=== PATIENT | male | born 1955 | race American Indian/Alaskan Native ===

== ENCOUNTER 2020-07-07 06:45 | Day surgery (SDC) | payer OTHER ==
[2020-07-07] MEDS ORDERED: ASPIRIN EC 325 MG TAB PO ONE (07:16)
[2020-07-07 07:36] LABS: Basophils # (Auto) 0.1 K/mm3 (0.0-0.1); Basophils % (Auto) 0.7 % (0.0-1.8); Eosinophils # (Auto) 0.3 K/mm3 (0.0-0.4); Eosinophils % (Auto) 3.5 % (0.0-4.3); Hemoglobin 14.4 gm/dl (11.8-15.2); Lymphocytes # (Auto) 3.4 K/mm3 (1.2-5.4); Lymphocytes % (Auto) 40.4 % (13.4-35.0); Mean Corpuscular HGB Conc 33 % (32-34); Mean Corpuscular Volume 89 fl (84-94); Monocytes # (Auto) 0.7 K/mm3 (0.0-0.8); Monocytes % (Auto) 8.7 % (0.0-7.3); Platelet Count 174 K/mm3 (140-440); Red Blood Count 4.85 M/mm3 (3.65-5.03); Red Cell Distribution Width 14.7 % (13.2-15.2)
[2020-07-07] MEDS: SODIUM CHLORIDE 0.9% 500 ML 500 ML IV SCH ×2 (07:40→08:53)
[2020-07-07 07:46] LABS: INR 1.01 (0.87-1.13)
[2020-07-07 07:47] LABS: BUN/Creatinine Ratio 13; Blood Urea Nitrogen 16 mg/dL (9-20); Hemolysis Index 6; Partial Thromboplastin Time 26.3 Sec. (24.2-36.6)
[2020-07-07] MEDS ORDERED: HEPARIN 10,000 UNITS/10 ML VIAL ONE (08:09)
[2020-07-07] MEDS ORDERED: HEPARIN/NS 5000 UNIT/500ML 1,000 ML IR ONE (08:09)
[2020-07-07] MEDS ORDERED: NITROGLYCERIN SYRINGE 0 ML ONE (08:10)
[2020-07-07] MEDS ORDERED: VERAPAMIL 5 MG/2 ML INJ ONE (08:10)
[2020-07-07] MEDS ORDERED: diphenhydrAMINE 50 MG/ML VIAL IV SCH (08:30)
[2020-07-07] MEDS ORDERED: FAMOTIDINE 20 MG/2 ML INJ IV SCH (08:30)
[2020-07-07] MEDS ORDERED: methylPREDNISolone Sod Succinate 125 MG/2 ML INJ IV NR (08:30)
[2020-07-07] MEDS: MIDAZOLAM 2 MG/2 ML INJ ONE ×2 (08:52→09:01)
[2020-07-07] MEDS: fentaNYL 100 MCG/2 ML INJ ONE ×2 (08:52→09:01)
[2020-07-07] MEDS: LIDOCAINE (2%) 20 MG/1 ML VIAL 20 ML MDV INFILTRATI ONE ×2 (08:53→09:02)
--- NOTE | 2020-07-07 10:04 | Discharge Summary ---
Short Stay Discharge Plan Activity: advance as tolerated Weight Bearing Status: Partial Weight Bearing Diet: low fat, low cholesterol, low salt Wound: keep clean and dry Special Instructions: no heavy lifting (3 days) Follow up with: RORO WILBURN MD [Primary Care Provider] - 7 Days ALONSO COY MD [Staff Physician] - 7 Days
[2020-07-07] MEDS ORDERED: SODIUM CHLORIDE 0.9% 1000 ML 1,000 ML IV SCH (10:15)
--- NOTE | 2020-07-07 10:16 | Cardiac Catherization Report ---
CARDIAC CATHETERIZATION REPORT REASON FOR PROCEDURE: The patient is a 64-year-old man with a history of hypertension, sarcoidosis, and sleep apnea. He presented as an outpatient with exertional dyspnea and fatigue. Despite a negative thallium stress test and a normal coronary angiography 3 years ago, he continues to have exertional dyspnea and fatigue, prompting a recommendation for right and left heart catheterization. PROCEDURES: 1. Right heart catheterization. 2. Selective left and right coronary angiography. 3. Left ventricular angiography. 4. Sedation time, start 900, end 922. I was present for the entire procedure and supervised the moderate sedation protocol. DESCRIPTION OF PROCEDURE: The patient was prepped and draped in a sterile fashion after informed consent. In recognition of a SEAFOOD allergy, he was premedicated with Solu-Medrol and Benadryl. The right femoral artery and vein were then entered after local anesthetic, and a 6-[place] sheath was placed in the artery and an 8-[place] sheath in the vein. [place] catheter was then advanced to the pulmonary artery position. Cardiac output was measured using the thermodilution method. A pigtail catheter was then advanced into the left ventricle, and simultaneous left and right heart filling pressures were then measured. The [place]-Alexandru catheter was then withdrawn, and right heart pressures measured on pullback. Left ventricular angiography was then performed, following which the pigtail catheter was withdrawn across the aortic valve and transaortic pressures were measured. Finally, selective left and right coronary angiography was performed using a #4 left Bhavna and a #4 right Bhavna. The catheters were then removed, sheath was removed, hemostasis over the arterial site using an Angio-Seal device, and manual compression over the venous site. The patient was returned to the postprocedure unit in stable condition. There were no complications. FINDINGS: HEMODYNAMICS: Mean right atrial pressure was 8. Right ventricular pressure was 40/12. Pulmonary artery pressure was 40/25. The mean pulmonary artery wedge pressure was 15. Left ventricular end-diastolic pressure was 15. Ascending aortic pressure was 134/83. There was no significant pressure gradient on pullback across the aortic valve. Cardiac output was 6.7 liters per minute. CORONARY ANGIOGRAPHY: The left main coronary artery was angiographically normal. The left anterior descending artery contained minimal irregularities in its proximal to mid segment, otherwise this vessel and its obtuse marginal branches were also angiographically normal. The circumflex artery was a large and dominant system, similarly angiographically normal. The right coronary artery was small, nondominant, and angiographically free of significant disease. Left ventricular systolic function was within normal limits, ejection fraction 50-55%. CONCLUSION: 1. Normal right heart filling pressures, borderline increase in left heart filling pressures, mild pulmonary hypertension. 2. Angiographically normal coronary arteries in the left circumflex dominant system. 3. Well preserved left ventricular systolic function, ejection fraction 50-55%. RECOMMENDATION: Risk factor modification, the patient is recommended to pursue pulmonary evaluation if his symptoms of shortness of breath persist. JOB# [id number] JOSEP/NTS
[2020-07-07] MEDS ORDERED: HYDROcodone/ACETAMINOPHEN 5-325 MG TAB PO PRN (10:30)
[2020-07-07] MEDS ORDERED: traMADol 50 MG TAB PO PRN (10:30)
[2020-07-07 14:26] VITALS: BP 137/87
== END 2020-07-07 15:20 | disposition home or self-care (01) ==
LOC: CATHLABREC 06:45
PROVIDERS: ATTEND Internal Medicine Cardiovascular Disease
DX: R06.09 Other forms of dyspnea (principal); R53.83 Other fatigue; R07.2 Precordial pain; I10 Essential (primary) hypertension; J45.909 Unspecified asthma, uncomplicated; M19.90 Unspecified osteoarthritis, unspecified site; G47.30 Sleep apnea, unspecified; Z82.5 Family history of asthma and other chronic lower respiratory diseases; Z88.8 Allergy status to other drugs, medicaments and biological substances; Z98.890 Other specified postprocedural states; Z79.82 Long term (current) use of aspirin
CPT/HCPCS: 36415; 80048; 85025; 85610; 85730; 93005; 93460; 99156; C1760; C1894; J1200; J1644; J2250; J2930; J3010; J7040; 96374; 96375; Q9967